=== PATIENT | female | born 1980 | race Two or more races ===

== ENCOUNTER → 2020-03-24 | Outpatient (CLI) | payer OTHER | END | disposition home or self-care (01) | LOC: OFIC 805 11:15 | PROVIDERS: ATTEND Otolaryngology | DX: G50.1 Atypical facial pain (principal); R09.81 Nasal congestion; J32.8 Other chronic sinusitis ==

== ENCOUNTER 2020-04-06 11:53 | Outpatient (CLI) | payer OTHER | END 2020-04-06 18:08 | disposition home or self-care (01) | LOC: OFIC 805 11:53 | PROVIDERS: ATTEND Otolaryngology | DX: G50.1 Atypical facial pain (principal); R09.81 Nasal congestion; J32.8 Other chronic sinusitis ==

== ENCOUNTER 2022-12-14 23:00 | Emergency (ER) | payer OTHER ==
[~2022-12-14] VITALS: Ht 170.2 cm; Wt 104.3 kg
[2022-12-14] MEDS ORDERED: ATACAND16 MG (23:11)
[2022-12-14] MEDS ORDERED: SYNTHROID88 MCG (23:11)
[2022-12-15 01:34] LABS: HEMATOCRIT 42.4 % (36.0-45.00); HEMOGLOBIN 14.4 g/dL (12.0-15.00); MEAN CELL VOLUME 86.8 fL (80.00-100.00); MEAN CORPUSCULAR HEMOGLOBIN 29.5 pg (27.00-32.0); PLATELET COUNT 444 K/uL (150-450); RED BLOOD COUNT 4.88 M/uL (4.00-6.00); RED CELL DISTRIBUTION WIDTH 12.7 % (11.5-14.5)
[2022-12-15 01:48] LABS: INR 0.98; PARTIAL THROMBOPLASTIN TIME 23.9 SECONDS (22.0-34.0); PROTHROMBIN TIME 10.3 SECONDS (9.0-11.5)
[2022-12-15 01:49] LABS: proBNP 109 pg/mL (0-51.9)
[2022-12-15 01:55] LABS: TROPONIN I hs < 3.0 PG/ML (42.2-82.3)
[2022-12-15 02:07] LABS: ALBUMIN 4.2 gm/dL (3.4-5.0); BILIRUBIN TOTAL 0.53 mg/dL (0.3-1.2); CALCIUM 9.4 mg/dL (8.5-10.1); CREATININE SERUM 0.94 mg/dL (0.55-1.02); GFR 64.99; GLOBULINA 4.5 G/DL (2.4-3.5); POTASSIUM 3.63 mEq/L (3.5-5.1); TOTAL PROTEIN 8.7 gm/dL (6.4-8.2); TSH 0.487 uIU/mL (0.358-3.74)
== END 2022-12-15 06:00 | disposition home or self-care (01) ==
LOC: ER 23:00
PROVIDERS: General Practice
DX: I16.9 Hypertensive crisis, unspecified (principal); I10 Essential (primary) hypertension; Z20.822 Contact with and (suspected) exposure to COVID-19; Z88.1 Allergy status to other antibiotic agents